=== PATIENT | male | born 1960 | race Caucasian/White ===

== ENCOUNTER 2018-05-04 14:22 | Outpatient (CLI) | payer BC ==
[~2018-05-04] VITALS: Ht 177.8 cm; Wt 95.9 kg
[2018-05-04] MEDS ORDERED: SERT50TA2 PO (14:39)
[2018-05-04] MEDS ORDERED: BUTA1TAB9 PO (14:39)
[2018-05-04] MEDS ORDERED: OXYC1TAB87 PO (14:39)
[2018-05-04] MEDS ORDERED: CYCL10TA9 PO (14:39)
[2018-05-04] MEDS ORDERED: LEVO5TAB28 PO (14:39)
[2018-05-04] MEDS ORDERED: IBUP-2055 PO (14:39)
[2018-05-04] MEDS ORDERED: MULT-1030 PO (14:39)
[2018-05-04] MEDS ORDERED: BUDE10.2 IH (14:39)
[2018-05-04 14:42] VITALS: BP 121/73
--- NOTE | 2018-05-04 16:55 | Diagnostic Imaging Report ---
INDICATION: History of chronic sinusitis and deviated nasal septum. Preoperative evaluation. TECHNIQUE: Two-view chest at 02:59 p.m. CORRELATION STUDY: None. FINDINGS: The heart size, mediastinal configuration and pulmonary vasculature are within normal limits. Lung major are hyperinflated but overall appear generally clear. Slight asymmetrically elevated left diaphragm. Multiple compressed and anteriorly wedged particularly mid thoracic vertebral bodies with slight eccentric kyphotic curvature. Rather diffuse thoracic spondylosis with disc space narrowing and endplate osteophyte formation. IMPRESSION: 1. No radiographic evidence for acute abnormality of the chest. Likely chronic changes about the lung parenchyma. Dictated by: Dictated on workstation # [id number]
== END 2018-05-04 16:00 | disposition home or self-care (01) ==
LOC: PREOP 14:22
PROVIDERS: ATTEND Otolaryngology Otolaryngology/Facial Plastic Surgery
DX: Z01.810 Encounter for preprocedural cardiovascular examination (principal); Z01.811 Encounter for preprocedural respiratory examination; Z11.2 Encounter for screening for other bacterial diseases; J32.9 Chronic sinusitis, unspecified; J34.2 Deviated nasal septum; J34.3 Hypertrophy of nasal turbinates
CPT/HCPCS: 71046; 87081; 93005

== ENCOUNTER 2018-05-13 07:27 | Day surgery (SDC) | payer BC ==
[~2018-05-13] VITALS: Ht 177.8 cm; Wt 95.9 kg
[~2018-05-13 07:27] MED LIST: BUDE10.2 IH; BUTA1TAB9 PO; CYCL10TA9 PO; IBUP-2055 PO; LEVO5TAB28 PO; MULT-1030 PO; OXYC1TAB87 PO; SERT50TA2 PO
[2018-05-13] MEDS ORDERED: AMPICILLIN/SULBACTAM INJECTION 1.5 GM in NS (IVPB) 100 ML IV ONE (08:15)
[2018-05-13] MEDS ORDERED: HYDROCORTISONE 100 MG/2 ML (Solu-CORTEF) VIAL IV ONE (08:15)
[2018-05-13] MEDS ORDERED: CATHETER FLUSH 10 ML SYR IV PRN (08:15)
[2018-05-13 08:23] VITALS: BP 111/74
--- NOTE | 2018-05-13 08:24 | Progress Note-Pre Operative ---
Pre-Operative Progress Note H&P Reviewed The H&P was reviewed, patient examined and no changes noted. Date Seen by Provider: May 13, 2018 Time Seen by Provider: 08:15 Date H&P Reviewed: May 13, 2018 Time H&P Reviewed: 08:15 Pre-Operative Diagnosis: Bilat Chronic Sinusitis, Deviated Nasal Septum, Bilat Hyper of Inf Turbs ZANDRA WINKLER MD May 13, 2018 08:24
[2018-05-13] MEDS: LACTATED RINGERS 1,000 ML IV PRN ×2 (08:26→10:19)
[2018-05-13] MEDS ORDERED: DEXAMETHASONE 10 MG/ML (DECADRON) 1 ML VIAL ONE (08:37)
[2018-05-13] MEDS ORDERED: ONDANSETRON 4 MG/2 ML (SDV) Z0FRAN ONE (08:37)
[2018-05-13] MEDS ORDERED: fentaNYL INJECTION 100 MCG/2 ML AMP ONE (08:37)
[2018-05-13] MEDS ORDERED: MIDAZOLAM 2 MG/2 ML (VERSED) VIAL ONE (08:37)
[2018-05-13] MEDS ORDERED: proPOfol 200 MG/20 ML (DIPRIVAN) VIAL IV ONE (08:37)
[2018-05-13] MEDS ORDERED: ROCURONIUM 10 MG/ML 5 ML SYRINGE IV ONE (08:37)
[2018-05-13] MEDS ORDERED: LIDOCAINE PF 2% 5 ML (XYLOCAINE) VIAL ONE (08:37)
[2018-05-13] MEDS ORDERED: LIDOCAINE/EPI 1%-1:100,000 (XYLOCAINE) 20ML ONE (08:49)
[2018-05-13] MEDS ORDERED: BSS 15 ML ONE (08:49)
[2018-05-13] MEDS ORDERED: PHENYLEPHRINE 0.5% NASAL SPR (NEO-SYNEPHRINE) REG ONE (08:49)
[2018-05-13] MEDS ORDERED: COCAINE HCL 4% 2 ML SYR ONE (08:49)
[2018-05-13] MEDS ORDERED: SEVOFLURANE (ULTANE) 15 ML INHAL SOLN ONE (10:17)
[2018-05-13] MEDS ORDERED: D5 1/2 NS W/KCL 20 MEQ/L 1,000 ML IV SCH (10:38)
--- NOTE | 2018-05-13 10:38 | Progress Note-Post Operative ---
Post-Operative Progess Note Surgeon (s)/.Net Programmer (s) Surgeon ZANDRA WINKLER MD .Net Programmer n/a Pre-Operative Diagnosis Bilat Chronic Sinusitis, Deviated Nasal Septum, Bilat Hyper of Inf Turbs Post-Operative Diagnosis same Post-Op Procedure Note Date of Procedure: May 13, 2018 Name of Procedure Performed: Bilat ESS, Nasal Septoplasty, Bialt REd of Inf Turbs Description & Findings Description and Findings: n/a Anesthesia Type get Estimated Blood Loss minimal Packing none. Specimen(s) collected/removed bilat chrnic sinusitis ZANDRA WINKLER MD May 13, 2018 10:38
[2018-05-13] MEDS ORDERED: NEOSTIGMINE 1 MG/ML 5 ML SYRINGE ONE (10:41)
[2018-05-13] MEDS ORDERED: GLYCOPYRROLATE 0.2 MG/ML (ROBINUL) 2 ML VIAL ONE (10:41)
[2018-05-13] MEDS ORDERED: oxyCODONE/APAP 5/325MG (PERCOCET 5) TABLET PO PRN (10:45)
[2018-05-13] MEDS ORDERED: ACETAMINOPHEN 325 MG TABLET PO PRN (10:45)
[2018-05-13] MEDS ORDERED: PROMETHAZINE INJ 25 MG/ML (PHENERGAN) AMP IVP PRN (10:45)
[2018-05-13] MEDS ORDERED: predniSONE 20 MG TAB PO ONE (10:45)
[2018-05-13] MEDS ORDERED: morphine INJ 10 MG/ML 1ML (SYR OR VIAL) ONE (10:54)
[2018-05-13] MEDS: morphine INJ 10 MG/ML 1ML (SYR OR VIAL) IVP ONE (11:00)
[2018-05-13] MEDS ORDERED: MEPERIDINE (DEMEROL) INJ 50 MG/ML IVP ONE (11:00)
[2018-05-13] MEDS ORDERED: PROMETHAZINE INJ 25 MG/ML (PHENERGAN) AMP IVP ONE (11:00)
[2018-05-13] MEDS ORDERED: ONDANSETRON 4 MG/2 ML (SDV) Z0FRAN IVP PRN (11:00)
[2018-05-13] MEDS ORDERED: HYDROmorphone 2 MG/ML VIAL (DILAUDID) IV ONE (11:00)
--- NOTE | 2018-05-13 11:05 | Anesthesia-General Post-Op ---
General Patient Condition Mental Status/LOC: Same as Preop Cardiovascular: Satisfactory Nausea/Vomiting: Absent Respiratory: Satisfactory Pain: Controlled Complications: Absent Post Op Complications Complications None Follow Up Care/Instructions Patient Instructions None needed. Anesthesia/Patient Condition Patient Condition Patient is doing well, no complaints, stable vital signs, no apparent adverse anesthesia problems. No complications reported per nursing. MIRANDA CHANDLER CRNA May 13, 2018 11:05
[2018-05-13 11:40] VITALS: BP 123/79
[2018-05-13] MEDS ORDERED: OXYC1TAB12 PO (12:07)
[2018-05-13] MEDS ORDERED: AMOX-355 PO (12:07)
[2018-05-13] MEDS ORDERED: PRD20T PO (12:07)
[2018-05-13 12:10] VITALS: BP 136/91
[2018-05-13 12:40] VITALS: BP 124/84
[2018-05-13 12:50] VITALS: BP 124/84
== END 2018-05-13 12:50 | disposition home or self-care (01) ==
LOC: SDC 07:27
PROVIDERS: ATTEND Otolaryngology Otolaryngology/Facial Plastic Surgery
DX: J32.2 Chronic ethmoidal sinusitis (principal); J32.1 Chronic frontal sinusitis; J34.2 Deviated nasal septum; J34.3 Hypertrophy of nasal turbinates; J43.9 Emphysema, unspecified; F17.210 Nicotine dependence, cigarettes, uncomplicated; G56.93 Unspecified mononeuropathy of bilateral upper limbs; G57.83 Other specified mononeuropathies of bilateral lower limbs; F41.9 Anxiety disorder, unspecified; F32.9 Major depressive disorder, single episode, unspecified; Z79.899 Other long term (current) drug therapy